=== PATIENT | female | born 1980 | race African-American/Black ===

== ENCOUNTER 2022-04-22 07:33 | Emergency (ER) | payer OTHER, SELFPAY ==
--- NOTE | 2022-04-22 07:56 | ED.GENADULT ---
HPI - General Adult General Chief complaint: Upper Respiratory Symptoms Stated complaint: sore throat t-2 Time Seen by Provider: 04/22/22 07:55 Source: patient Mode of arrival: Ambulatory Limitations: no limitations History of Present Illness HPI narrative: This is a 41-year-old female with history of migraines, hypertension with complaint of several days of sore throat, nasal congestion, dry cough generally feeling unwell. Patient denies any fevers. She is had some mild nasal congestion. She denies chest pain or shortness of breath. No nausea or vomiting, no diarrhea constipation, no urinary symptoms. Patient states they are currently on their menses so taking Naprosyn. Denies any allergies to medications but does have an allergy to nickel. Patient did have her influenza shot approximately a month ago. Patient is accompanied by their . Related Data Allergies Allergy/AdvReac Type Severity Reaction Status Date / Time nickel Allergy Verified 04/22/22 08:02 Review of Systems Review of Systems ROS Unobtainable: All systems reviewed & are unremarkable except as noted in HPI and below Patient History Social History Smoking Status: Never smoker Exam Narrative Exam Narrative: GEN: well nourished, well appearing female, alert and oriented x 3, patient appears to be in mild distress. HEENT: Atraumatic, pupils are equal round reactive to light, extraocular movements are intact, mild rhinorrhea bilaterally, TMs are clear with no fluid, TM slightly retracted bilaterally, there is no conjunctival pallor. Throat is clear without any exudates, no erythema, tonsillar enlargement or uvular deviation, patient is slightly hoarse. No muffled voice. No stridor or difficulty with secretions. HEART: Regular rate and rhythm without murmur, clicks, rubs. LUNGS:Lungs clear to auscultation, no wheezes, rales, crackles, chest moves symmetrically ABD:bowel sounds normal, soft, non-tender, no guarding, rebound, rigidity, no masses noted, no hepatosplenomegaly MSCL: Non-tender, no muscle atrophy, muscles strength 5/5 upper and lower extremities, full range of motion, normal gait NEURO:CN 2-12 intact, sensation normal Initial Vital Signs Initial Vital Signs: Vital Signs Temperature 97.8 F 04/22/22 07:59 Pulse Rate 74 04/22/22 07:59 Respiratory Rate 18 04/22/22 07:59 Blood Pressure 115/60 04/22/22 07:59 Pulse Oximetry 100 04/22/22 07:59 Oxygen Delivery Method 04/22/22 07:59 Course Orders Ordered: ED Orders 04/22/22 08:06 Covid-19 + FLU A/B + RSV - PCR Stat Vital Signs Vital signs: Vital Signs - 8 hr 04/22/22 07:59 Temperature 97.8 F Pulse Rate 74 Respiratory Rate 18 Blood Pressure 115/60 Pulse Oximetry 100 Oxygen Delivery Method Room Air Medical Decision Making Lab Data Labs: Lab Results 04/22/22 Range/Units 08:09 SARS-CoV-2 (PCR) Negative (Negative) Influenza A (RT-PCR) Flu a negative (NEGATIVE) Influenza B (RT-PCR) Flu b negative (NEGATIVE) RSV (PCR) Negative (Negative) MDM Narrative Medical decision making narrative: 41-year-old female who is well-appearing with viral respiratory symptoms, Centor criteria 0/4, with normal appearing posterior pharynx. Strep swab was deferred. Discharge Plan Departure Patient Disposition: Home Clinical Impression: Upper respiratory infection Instructions: DI for Viral Upper Respiratory Infection -- Adult Activity Restrictions/Additional Instructions: You have been diagnosed with viral upper respiratory illness. You did test negative for COVID, influenza and RSV today. Symptoms can last 10 days.? Recommend Tylenol and/or ibuprofen for fevers and body aches. [You can use [id number] cough medication as needed] Please return for passing out, new chest pain, shortness of breath, persistent vomiting, black or bloody stools or other new or concerning symptoms. Referrals: ProviderTamica [Primary Care Provider] - Stand Alone Forms: Work Release Note Visit Report Forms: Patient Portal/API
[2022-04-22 07:59] VITALS: BP 115/60; PULSE 74; RESP 18; TEMP 36.6; O2SAT 100; BMI 22.1
[2022-04-22 09:12] LABS: Influenza A - CEPHEID Flu A NEGATIVE (NEGATIVE); Influenza B - CEPHEID Flu B NEGATIVE (NEGATIVE); Respiratory Syncytial Virus Negative (Negative)
[2022-04-22 09:31] LABS: COVID-19 CEPHEID 4-PLEX PCR Negative (Negative)
== END 2022-04-22 09:34 | disposition home or self-care (01) ==
PROVIDERS: Emergency Provider Emergency Medicine
DX: J06.9 Acute upper respiratory infection, unspecified (principal); Z20.822 Contact with and (suspected) exposure to COVID-19
CPT/HCPCS: 0241U; 99281; 99282

== ENCOUNTER 2022-09-03 08:55 | Emergency (ER) | payer OTHER, SELFPAY ==
[2022-09-03 09:04] VITALS: BP 118/68; PULSE 93; RESP 18; TEMP 36.8; O2SAT 99; BMI 23.9
--- NOTE | 2022-09-03 09:10 | ED_ITS ---
HPI - General Adult General Chief complaint: Upper Respiratory Symptoms Stated complaint: sore throat T-2/cough/see bumps on throat Time Seen by Provider: 09/03/22 09:05 Source: patient Mode of arrival: Ambulatory History of Present Illness HPI narrative: This is a 41-year-old female history of migraines, hypertension who presents with complaint of throat irritation, some itchy ears, some nasal congestion. Patient states she is had about 3 days of symptoms sore throat is actually better but still very irritated. Patient states no fevers. Occasional cough but not persistent. No chest pain or shortness of breath. No nausea or vom iting. She is noticed some mild nasal drainage but not a lot. Patient states she may or may not have any sick contacts. Patient is unsure if she has any seasonal allergies she is fairly new to the area his only spent a couple months locally. She states she was feeling fine until 3 days ago. No known drug allergies stated allergy to nickel. Related Data Allergies Allergy/AdvReac Type Severity Reaction Status Date / Time nickel Allergy Verified 04/22/22 08:02 Review of Systems Review of Systems ROS Unobtainable: All systems reviewed & are unremarkable except as noted in HPI and below Patient History Social History Smoking Status: Never smoker Smoking Status: Never smoker alcohol intake frequency: holidays/special occasions only Substance Use Type: does not use Exam Narrative Exam Narrative: GEN: well nourished, well appearing female, alert and oriented x 3, patient appears to be in mild distress. HEENT: Atraumatic, pupils are equal round reactive to light, extraocular movements are intact, nares show mild congestion, TMs are clear with no fluid, there is no conjunctival pallor. Throat is clear without any exudates, mild erythema, no tonsillar enlargement or uvular deviation, patient does have cobblestoning and postnasal drip present. Hoarseness. Clear speech. Patient has some nasal congestion as well. HEART: Regular rate and rhythm without murmur, clicks, rubs. LUNGS:Lungs clear to auscultation, no wheezes, rales, crackles, chest moves symmetrically ABD:bowel sounds normal, soft, non-tender, no guarding, rebound, rigidity, no masses noted, no hepatosplenomegaly MSCL: Non-tender, no muscle atrophy, muscles strength 5/5 upper and lower extremities, full range of motion, normal gait NEURO:CN 2-12 intact, sensation normal SKIN: No rash, erythema or other skin changes Initial Vital Signs Initial Vital Signs: Vital Signs Temperature 98.2 F 09/03/22 09:04 Pulse Rate 93 H 09/03/22 09:04 Respiratory Rate 18 09/03/22 09:04 Blood Pressure 118/68 09/03/22 09:04 Pulse Oximetry 99 09/03/22 09:04 Oxygen Delivery Method Room Air 09/03/22 09:04 Course Orders Ordered: Discontinued Medications Dexamethasone (Dexamethasone 10 Mg/Ml Vial) 10 mg PO NOW ONE Stop: 09/03/22 09:27 Last Admin: 09/03/22 09:30 Dose: 10 mg Documented By: ANNA Vital Signs Vital signs: Vital Signs - 8 hr 09/03/22 09:04 Temperature 98.2 F Pulse Rate 93 H Respiratory Rate 18 Blood Pressure 118/68 Pulse Oximetry 99 Oxygen Delivery Method Room Air Medical Decision Making [facility] Narrative Medical decision making narrative: This is a 41-year-old female with complaint of hoarseness some sore throat afebrile nasal congestion. Suspect patient has viral illness, we will give a s jeane dose of dexamethasone for pharyngitis. Patient and I discussed doing either Benadryl or [id number] antihistamine. She is new to the area she is also having some itchy ears so discussed if symptoms are more prolonged she may be developing seasonal allergies. Patient's exam is overall reassuring. Patient expresses understanding. Discharge Plan Departure Patient Disposition: Home Clinical Impression: Upper respiratory infection Activity Restrictions/Additional Instructions: Please follow-up symptoms are persisting. I suspect you have a viral infection causing her symptoms if they persist little bit longer but without fever maybe developing some seasonal allergies. You can take Benadryl every 6-8 hours or [id number]-cro-avpygpa antihistamine such as Claritin/loratadine/Zyrtec once daily. Please return for inability to swallow your saliva or secretions, muffled voice, if you feel your airway is swelling or closing other new or concerning changes. Referrals: ProviderTamica [Primary Care Provider] - Stand Alone Forms: Patient Portal/API, Work Release Note
[2022-09-03] MEDS: DEXAMETHASONE 10 MG/ML VIAL PO (09:30)
== END 2022-09-03 09:36 | disposition home or self-care (01) ==
PROVIDERS: Emergency Provider Emergency Medicine
DX: J06.9 Acute upper respiratory infection, unspecified (principal)
CPT/HCPCS: 99283; J1100

== ENCOUNTER 2022-09-04 20:48 | Emergency (ER) | payer OTHER, SELFPAY ==
[2022-09-04 21:00] VITALS: BP 103/62; PULSE 80; RESP 18; TEMP 36.6; O2SAT 100
--- NOTE | 2022-09-04 21:07 | DI.RAD.S_ITS ---
PROCEDURE: XR CHEST 2V INDICATIONS: cough,congestion TECHNIQUE: 2 views of the chest were acquired. COMPARISON: None. FINDINGS: Surgical changes and devices: None. Lungs and pleura: Lungs are clear. No pleural effusions or pneumothorax. Mediastinum: Mediastinal contours are normal. Heart size is normal. Bones and chest wall: No suspicious bony abnormalities. Soft tissues appear unremarkable. IMPRESSION: 1. No acute cardiopulmonary disease. Dictated by: Aashish Rendon M.D. on 09/04/2022 at 22:33 Approved by: Aashish Rendon M.D. on 09/04/2022 at 22:33
[2022-09-04 23:11] LABS: Adenovirus Not Detected (Not Detect); B. parapertussis Not Detected (Not Detecte); Bordetella pertussis Not Detected (Not Detecte); Chlamydophila pneumoniae Not Detected (Not Detect); Coronavirus 229E Not Detected (Not Detect); Coronavirus HKU1 Not Detected (Not Detect); Coronavirus NL 63 Not Detected (Not Detect); Coronavirus OC43 Not Detected (Not Detect); Human Metapneumovirus Not Detected (Not Detect); Human Rhinovirus/Enterovirus Detected (Not Detect); Influenza A Not Detected (Not Detect); Influenza B Not Detected (Not Detect); Mycoplasma pneumoniae Not Detected (Not Detect); Parainfluenza Virus 1 Not Detected (Not Detect); Parainfluenza Virus 2 Not Detected (Not Detect); Parainfluenza Virus 3 Not Detected (Not Detect); Parainfluenza Virus 4 Not Detected (Not Detect); Respiratory Syncytial Virus Not Detected (Not Detect); SARS- CoV-2 Not Detected (Not Detecte)
--- NOTE | 2022-09-04 23:19 | ED.GENADULT ---
HPI - General Adult General Chief complaint: Upper Respiratory Symptoms Stated complaint: cough, congestion getting worse Time Seen by Provider: 09/04/22 23:13 Source: patient Mode of arrival: Ambulatory Limitations: no limitations History of Present Illness HPI narrative: Patient is a 41-year-old female who is here for evaluation of a cough and congestion and fevers and generally not feeling well that has been worsening over the past several days. She is having body aches nausea. Related Data Allergies Allergy/AdvReac Type Severity Reaction Status Date / Time nickel Allergy Verified 04/22/22 08:02 Review of Systems Constitutional Constitutional: Reports system reviewed and no additional complaints, except as documented ENT Ears, Nose, Mouth, and Throat: Reports system reviewed and no additional complaints, except as documented Respiratory Respiratory: Reports system reviewed and no additional complaints, except as documented Gastrointestinal Gastrointestinal: Reports system reviewed and no additional complaints, except as documented Integumentary/Breasts Skin/Breast: Reports system reviewed and no additional complaints, except as documented Patient History Social History Smoking Status: Never smoker Smoking Status: Never smoker alcohol intake frequency: holidays/special occasions only Substance Use Type: does not use Exam Initial Vital Signs Initial Vital Signs: Vital Signs Temperature 97.9 F 09/04/22 21:00 Pulse Rate 80 09/04/22 21:00 Respiratory Rate 18 09/04/22 21:00 Blood Pressure 103/62 09/04/22 21:00 Pulse Oximetry 100 09/04/22 21:00 Oxygen Delivery Method Room Air 09/04/22 21:00 HENMT Ears: TM's normal bilaterally Mouth: oral mucosae normal and moist mucous membranes Resp Effort & Inspection: normal respiratory effort Auscultation: clear to auscultation bilaterally Cardio Rate: regular rate Skin General: no rashes or lesions noted Neuro General: patient alert, patient awake and moves all extremities Course Orders Ordered: ED Orders 09/04/22 21:21 Respiratory Panel (Film Array) Stat Discontinued Medications Ondansetron HCl (Ondansetron 4 Mg Odt Prepack) 1 bottle MISC SEEINSTR ONE Stop: 09/04/22 23:21 Last Admin: 09/04/22 23:33 Dose: 1 bottle Documented By: GC Vital Signs Vital signs: Vital Signs - 8 hr 09/04/22 23:34 Temperature 97.3 F L Pulse Rate 66 Respiratory Rate 16 Blood Pressure 106/56 L Pulse Oximetry 99 Oxygen Delivery Method Room Air Medical Decision Making Lab Data Lab results reviewed: Yes I reviewed the patient's lab results. Labs: Lab Results 09/04/22 Range/Units 21:21 Chlamy pneumoniae PCR Not detected (Not Detect) Adenovirus (PCR) Not detected (Not Detect) B. pertussis DNA (PCR) Not detected (Not Detecte) B.parapertussis DNA PCR Not detected (Not Detecte) Coronavirus OC43 (PCR) Not detected (Not Detect) Coronavirus HKU1 (PCR) Not detected (Not Detect) Coronavirus 229E (PCR) Not detected (Not Detect) SARS-CoV-2 (PCR) Not detected (Not Detecte) Coronavirus NL63 (PCR) Not detected (Not Detect) Human Metapneumovir PCR Not detected (Not Detect) Influenza Type A (PCR) Not detected (Not Detect) Influenza Type B (PCR) Not detected (Not Detect) M. pneumoniae (PCR) Not detected (Not Detect) Parainfluenza 1 (PCR) Not detected (Not Detect) Parainfluenza 2 (PCR) Not detected (Not Detect) Parainfluenza 3 (PCR) Not detected (Not Detect) Parainfluenza 4 (PCR) Not detected (Not Detect) RSV (PCR) Not detected (Not Detect) Entero/Rhino (PCR) Detected H (Not Detect) Imaging Data Chest x-ray: Radiologist's Impression: PROCEDURE:? XR CHEST 2V ? INDICATIONS:? cough,congestion ? TECHNIQUE:? 2 views of the chest were acquired.? ? COMPARISON:? None. ? FINDINGS:? ? Surgical changes and devices:? None.? ? Lungs and pleura:? Lungs are clear.? No pleural effusions or pneumothorax.? ? Mediastinum:? Mediastinal contours are normal.? Heart size is normal.? ? Bones and chest wall:? No suspicious bony abnormalities.? Soft tissues appear unremarkable.? ? IMPRESSION:? ? 1.? No acute cardiopulmonary disease. MDM Narrative Medical decision making narrative: Patient is positive for rhino virus. Lungs are clear. No indication for antibiotics. We did discuss the use of decongestants. She was given a note for work. She was given return precautions. She expressed understanding and agreement. Discharge Plan Departure Patient Disposition: Home Clinical Impression: Rhinovirus infection Instructions: DI for Viral Upper Respiratory Infection -- Adult Activity Restrictions/Additional Instructions: You can take Tylenol/ibuprofen for any discomfort. I would also recommend an antihistamine such as Claritin or Mary or Zyrtec. Use the nausea medication as needed. Increase your fluid intake. Return to the emergency department for new symptoms. Referrals: Provider,Tamica GRIJALVA [Primary Care Provider] - Stand Alone Forms: Patient Portal/API, Work Release Note
[2022-09-04] MEDS: ONDANSETRON 4 MG ODT PREPACK 1 BOTTLE MISC (23:33)
[2022-09-04 23:34] VITALS: BP 106/56; PULSE 66; RESP 16; TEMP 36.3; O2SAT 99
== END 2022-09-04 23:35 | disposition home or self-care (01) ==
PROVIDERS: Emergency Provider Emergency Medicine
DX: J06.9 Acute upper respiratory infection, unspecified (principal); B34.8 Other viral infections of unspecified site; Z20.822 Contact with and (suspected) exposure to COVID-19
CPT/HCPCS: 71046; 87633; 99281; 99283